=== PATIENT | female | born 1985 | race Caucasian/White ===

== ENCOUNTER 2016-05-26 19:07 | Emergency (ER) | payer MEDICAID, OTHER ==
[2016-05-26] MEDS ORDERED: PROCHLORPERAZINE 5 MG/ML 2 ML VIAL ONE (20:29)
[2016-05-26] MEDS ORDERED: LACTATED RINGERS 1,000 ML ONE (20:29)
[2016-05-26] MEDS ORDERED: DIPHENHYDRAMINE HCL 50 MG/1 ML VIAL ONE (20:29)
[2016-05-26] MEDS ORDERED: ACETAMINOPHEN 325 MG TABLET ONE (20:29)
[2016-05-26] MEDS ORDERED: DEXAMETHASONE 4 MG TABLET ONE (20:29)
== END 2016-05-26 21:38 | disposition home or self-care (01) ==
LOC: ED 19:07
DX: R51 Headache (principal); J45.909 Unspecified asthma, uncomplicated
CPT/HCPCS: 99283 ×2; 96374; 96361; J1200; J0780; A9270 ×2; J7120